=== PATIENT | male | born 1980 | race Caucasian/White ===

== ENCOUNTER 2016-11-18 21:19 | Emergency (ER) | payer SELFPAY ==
[~2016-11-18] VITALS: Ht 175.3 cm; Wt 115.0 kg
[2016-11-18 21:21] VITALS: BP 143/88; PULSE 101; RESP 16; TEMP 98.5; O2SAT 97
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
[2016-11-18] MEDS ORDERED: DICL75TA PO (22:37)
[2016-11-18] MEDS ORDERED: traMADol HCL 50 MG TAB PO ONE (22:45)
== END 2016-11-18 23:08 | disposition home or self-care (01) ==
LOC: NEPB 21:19
DX: S83.91XA Sprain of unspecified site of right knee, initial encounter (principal); Z72.0 Tobacco use; V86.69XA Passenger of other special all-terrain or other off-road motor vehicle injured in nontraffic accident, initial encounter
CPT/HCPCS: 73564; 99283; E0113; L1830

== ENCOUNTER 2018-07-21 20:32 | Observation (INO) ==
[2018-07-21 21:02] VITALS: BP 159/89; PULSE 74; RESP 18; TEMP 98.7; O2SAT 98
[2018-07-21] MEDS ORDERED: Sod Chloride 0.9% Inj 1,000 ML IV.SIG ONE (22:25)
[2018-07-21] MEDS ORDERED: Morphine Inj 4 MG/ML Vial IV.PUSH ONE (22:35)
[2018-07-21 22:40] LABS: Baso # (Auto) 0.1 th/mm3 (0.0-0.2); Baso % (Auto) 0.5 % (0.0-2.0); Eos # (Auto) 0.2 th/mm3 (0.0-0.4); Eos % (Auto) 1.7 % (0.0-4.0); Hematocrit 43.6 % (39.0-51.0); Hemoglobin 15.7 gm/dL (13.0-17.0); Lymph # (Auto) 2.1 th/mm3 (1.0-4.8); Lymph % (Auto) 17.1 % (9.0-44.0); Mean Corpuscular Hemoglobin 31.3 pg (27.0-34.0); Mean Corpuscular Volume 86.9 fL (80.0-100.0); Mean Platelet Volume 8.9 fL (7.0-11.0); Mono # (Auto) 1.2 th/mm3 (0.0-0.9); Mono % (Auto) 10.3 % (0.0-8.0); Neut # (Auto) 8.5 th/mm3 (1.8-7.7); Neut % (Auto) 70.4 % (16.0-70.0); Platelet Count 234 th/mm3 (150-450); Red Blood Count 5.02 mil/mm3 (4.50-5.90); Red Cell Distribution Width 13.8 % (11.6-17.2); White Blood Count 12.1 th/mm3 (4.0-11.0)
[2018-07-21 22:44] LABS: Mean Corpuscular HGB Conc 36.1 % (32.0-36.0)
[2018-07-21 22:57] LABS: Activated Partial Thrombo Time 28.5 sec (23.4-31.7); Prothrombin Time 10.3 sec (9.8-11.6)
[2018-07-21 23:04] LABS: Alkaline Phosphatase 71 U/L (45-117); Total Protein 7.4 g/dL (6.4-8.2)
[2018-07-21 23:05] LABS: Alanine Aminotransferase 42 U/L (12-78); Albumin 3.6 g/dL (3.4-5.0); Anion Gap 6 meq/L (5-15); Aspartate Aminotransferase 33 U/L (15-37); Blood Urea Nitrogen 14 mg/dL (7-18); Calcium 9.1 mg/dL (8.5-10.1); Chloride 107 meq/L (98-107); Glomerular Filtration Rate 77 mL/min (>89); Glucose,Random 87 mg/dL (74-106); Lipase 82 U/L (73-393); Magnesium 2.1 mg/dL (1.5-2.5); Sodium 139 meq/L (136-145)
[2018-07-21 23:09] LABS: Potassium 4.2 meq/L (3.5-5.1)
--- NOTE | 2018-07-21 23:37 | ED ---
HPI General Chief Complaint: Abdominal Pain Stated Complaint: R side abdominal pain Time Seen by Provider: 07/21/18 22:29 Source: patient Mode of arrival: ambulatory Limitations: no limitations History of Present Illness HPI narrative: Patient is a 38-year-old male who presents the emergency room with complaints of abdominal pain. Patient reports that the abdominal pain is located to his right upper abdomen, reports that it has been constant for the past 2-1/2 days. Patient reports associated nausea and vomiting with his symptoms. Patient was told 3 months ago that he may need to have a cholecystectomy as he has multiple stones in his gallbladder, patient reports he has never followed up for this. Denies history of abdominal surgeries. Denies any medical history. He does not take any medications. Patient reports that nothing makes this abdominal pain better or worse, this abdominal pain came out of nowhere a few days ago. Patient denies any fever or chills, reports that he is able to eat but does have a decreased appetite. Patient with no chest pain or shortness of breath, no constipation or diarrhea, no other complaints. MD complaint: Reports abdominal pain Onset (ago): day(s) (2.5 days) Pain Consistency: constant Location: Reports RUQ and RLQ Severity: moderate Severity scale (1-10): 5 Quality: Reports cramping, aching and sharp Radiation: Reports none Migration to: Reports no migration Relieving factors: nothing Exacerbating factors: nothing Associated symptoms: Reports denies other symptoms Related Data Home Medications Medication Instructions Recorded Confirmed No Known Home Medications 07/21/18 07/22/18 Previous Rx's Medication Instructions Recorded hydrocodone-acetaminophen [[place]] 1 tab PO Q4H #25 tab 07/22/18 Allergies Allergy/AdvReac Type Severity Reaction Status Date / Time penicillin G Allergy Unknown Unverified 04/09/17 17:56 Review of Systems ROS: all other systems reviewed are negative [facility] Medical History Medical History Patient denies medical problems (Acute) Surgical History Surgical History No history of previous surgery (Acute) Social History Social History Substance History: Active Abuse Second Hand Smoke Exposure: Yes Smoking Status: Current some day smoker Tobacco Type: Cigarettes How Often Do You Have a Drink Containing Alcohol: Monthly or less Recent Travel in [facility] within the Last 8 Weeks: No Recent Out of Country Travel within the Last 8 Weeks: No Immunization History Tetanus Immunization: Unsure Exam Narrative Exam Narrative: GENERAL: mild distress SKIN: Focused skin assessment warm/dry. HEAD: Atraumatic. Normocephalic. EYES: Pupils equal and round. No scleral icterus. No injection or drainage. ENT: No nasal bleeding or discharge. Mucous membranes pink and moist. NECK: Trachea midline. No JVD. CARDIOVASCULAR: Regular rate and rhythm. No murmur appreciated. RESPIRATORY: No accessory muscle use. Clear to auscultation. Breath sounds equal bilaterally. GASTROINTESTINAL: Abdomen soft, tenderness to right lower to mid abdomen with no rebound or guarding, nondistended. Hepatic and splenic margins not palpable. MUSCULOSKELETAL: No obvious deformities. No clubbing. No cyanosis. No edema. NEUROLOGICAL: Awake and alert. No obvious cranial nerve deficits. Motor grossly within normal limits. Normal speech. PSYCHIATRIC: Appropriate mood and affect; insight and judgment normal. Course Initial Documented Vital Signs Temperature 98.7 F 07/21/18 20:58 Pulse Rate 74 07/21/18 20:58 Respiratory Rate 18 07/21/18 20:58 Blood Pressure 159/89 H 07/21/18 20:58 Pulse Oximetry 98 07/21/18 20:58 Last Documented Vital Signs Temperature 98.7 F 07/21/18 20:58 Pulse Rate 74 07/21/18 20:58 Respiratory Rate 18 07/21/18 20:58 Blood Pressure 159/89 H 07/21/18 20:58 Pulse Oximetry 98 07/21/18 20:58 Medical Decision Making MDM Narrative Medical decision making narrative: During the course of the patients emergency department visit, the patients history, examination, and differential diagnosis were reviewed with the patient. The patient was placed on a surveillance system monitor with oximetry and frequent blood pressure monitoring. The patient had an IV access obtained and blood work sent for analysis. The patient was initially provided IVF, IV zofran and IV morphine for pain relief The patients laboratory studies were reviewed and remarkable for wbc 12.1, hgb 15.7, hct 43.6, platelets 234 sodium 139, potassium 4.2, chloride 107, bun 14, creatine 1.07, glucose 87 lft's: wnl Radiology studies were reviewed and remarkable for: appendix with normal caliber, there is some minimal inflammatory or edemetous changes around the distal appendix - cannot exclude early appendicitis Given his symptoms and rlq to right mid abdominal pain, minimally elevated wbc, plan to obs for serial abdominal evaluations as well as for a general surgery evaluation in the morning. Patient will be kept NPO. will cover with rocephin as well as flagyl Medical Screen Exam Complete: Yes Emergency Medical Condition: Yes Differential Diagnosis Differential Diagnosis: appendicitis, cholecystitis, gastroenteritis, diverticulitis, uti Medical Records Medical records reviewed: Yes I reviewed the patient's medical records. Lab Data Lab results reviewed: Yes I reviewed the patient's lab results. Result diagrams: 07/21/18 22:20 07/21/18 22:20 Lab Results 07/21/18 07/21/18 07/21/18 Range/Units 22:20 22:20 22:20 WBC 12.1 H (4.0-11.0) th/mm3 RBC 5.02 (4.50-5.90) mil/mm3 Hgb 15.7 (13.0-17.0) gm/dL Hct 43.6 (39.0-51.0) % MCV 86.9 (80.0-100.0) fL MCH 31.3 (27.0-34.0) pg MCHC 36.1 H (32.0-36.0) % RDW 13.8 (11.6-17.2) % Plt Count 234 (150-450) th/mm3 MPV 8.9 (7.0-11.0) fL Prelim Diff (Auto) Slide review pending Neut % (Auto) 70.4 H (16.0-70.0) % Lymph % (Auto) 17.1 (9.0-44.0) % [place] % (Auto) 10.3 H (0.0-8.0) % Eos % (Auto) 1.7 (0.0-4.0) % Baso % (Auto) 0.5 (0.0-2.0) % Neut # (Auto) 8.5 H (1.8-7.7) th/mm3 Lymph # (Auto) 2.1 (1.0-4.8) th/mm3 [place] # (Auto) 1.2 H (0.0-0.9) th/mm3 Eos # (Auto) 0.2 (0.0-0.4) th/mm3 Baso # (Auto) 0.1 (0.0-0.2) th/mm3 WBC Differential Manual diff final Seg Neuts % (Manual) 50 (16-70) % Band Neuts % (Manual) 10 H (0-6) % Lymphocytes % (Manual) 25 (9-44) % Monocytes % (Manual) 13 H (0-8) % Eosinophils % (Manual) 1 (0-4) % Metamyelocytes % (Man) 1 (0-1) % Abs Neuts (Manual) 7.4 (1.8-7.7) th/mm3 Differential Comment . Platelet Estimate Normal (Normal) Platelet Morphology Normal (Normal) RBC Morphology Normal (Normal) PT 10.3 (9.8-11.6) sec INR 1.0 Ratio APTT 28.5 (23.4-31.7) sec Sodium 139 (136-145) meq/L Potassium 4.2 (3.5-5.1) meq/L Chloride 107 (98-107) meq/L Carbon Dioxide 26.0 (21.0-32.0) meq/L Anion Gap 6 (5-15) meq/L BUN 14 (7-18) mg/dL Creatinine 1.07 (0.60-1.30) mg/dL Estimated GFR 77 L (>89) mL/min Random Glucose 87 (74-106) mg/dL Calcium 9.1 (8.5-10.1) mg/dL Magnesium 2.1 (1.5-2.5) mg/dL Total Bilirubin 0.3 (0.2-1.0) mg/dL AST 33 (15-37) U/L ALT 42 (12-78) U/L Alkaline Phosphatase 71 (45-117) U/L Total Protein 7.4 (6.4-8.2) g/dL Albumin 3.6 (3.4-5.0) g/dL Lipase 82 (73-393) U/L Imaging Data Radiologist's impression: Abdomen/Pelvis CT 07/22/18 22:35 CONCLUSION: 1. Appendix has normal caliber. There are some very minimal inflammatory or edematous changes around the distal appendix. Cannot exclude an early appendicitis. No appendicolith. No acute findings on remainder of examination. 2. Nonacute findings include small hiatal hernia. Calcified gallstones in gallbladder neck.
[2018-07-22 00:57] LABS: Eosinophils 1 % (0-4); Lymphocytes 25 % (9-44); Metamyelocytes 1 % (0-1); Monocytes 13 % (0-8)
[2018-07-22 00:58] LABS: Platelet Estimate Normal (Normal); Platelet Morphology Normal (Normal)
[2018-07-22 00:59] LABS: RBC Morphology Normal (Normal)
--- NOTE | 2018-07-22 01:08 | CT ---
EXAM DATE: 07/22/2018 12:54 AM EST AGE/SEX: 38 years / Male INDICATIONS: Right lower quadrant pain. CLINICAL DATA: This is the patient's initial encounter. Patient reports that signs and symptoms have been present for 1 day and indicates a pain score of 7/10. MEDICAL/SURGICAL HISTORY: None. None. ORAL CONTRAST: No oral contrast ingested. RADIATION DOSE: 12.22 CTDI (mGy) COMPARISON: No prior exams available for comparison. TECHNIQUE: Multiple contiguous axial images were obtained through the abdomen and pelvis following b olus infusion of 94 ml Omnipaque 350 (iohexol) nonionic water-soluble contrast as a single exam dos e. No oral contrast ingested. Using automated exposure control and adjustment of the mA and/or kV ac cording to patient size, radiation dose was kept as low as reasonably achievable to obtain optimal di agnostic quality images. DICOM format image data is available electronically for review and comparis on. FINDINGS: There is dependent atelectasis at the lung bases. Small hiatal hernia. No acute findings in the liver, spleen, adrenals, kidneys or pancreas. Calcified gallstones in gallbladder neck. No biliary ductal dilatation. The appendix is visualized in the right lower quadrant. It has normal caliber but there are some very minimal inflammatory changes around the distal appendix. Cannot exclude an early appendicitis. There is no free fluid. No bowel obstruction. No adenopathy. CONCLUSION: 1. Appendix has normal caliber. There are some very minimal inflammatory or edematous changes around the distal appendix. Cannot exclude an early appendicitis. No appendicolith. No acute findings on re mainder of examination. 2. Nonacute findings include small hiatal hernia. Calcified gallstones in gallbladder neck. Electronically signed by: Ricky Peterson MD 07/22/2018 1:06 AM EST
== END 2018-07-22 02:35 | disposition left against medical advice (07) ==
LOC: NEPD 20:32 → NEDA 20:32
PROVIDERS: ADMIT Family Medicine; ATTEND Family Medicine

== ENCOUNTER 2018-07-22 02:53 | Inpatient (IN) ==
[2018-07-22] MEDS ORDERED: Morphine Inj 4 MG/ML Vial IV.PUSH ONE (04:02)
[2018-07-22 04:39] LABS: Baso # (Auto) 0.1 th/mm3 (0.0-0.2); Baso % (Auto) 0.6 % (0.0-2.0); Eos # (Auto) 0.3 th/mm3 (0.0-0.4); Hemoglobin 15.2 gm/dL (13.0-17.0); Lymph # (Auto) 2.3 th/mm3 (1.0-4.8); Lymph % (Auto) 25.6 % (9.0-44.0); Mean Corpuscular Hemoglobin 31.7 pg (27.0-34.0); Mean Corpuscular Volume 87.7 fL (80.0-100.0); Mean Platelet Volume 8.8 fL (7.0-11.0); Mono # (Auto) 1.1 th/mm3 (0.0-0.9); Mono % (Auto) 12.5 % (0.0-8.0); Neut # (Auto) 5.3 th/mm3 (1.8-7.7); Neut % (Auto) 58.3 % (16.0-70.0); Platelet Count 219 th/mm3 (150-450); Red Blood Count 4.79 mil/mm3 (4.50-5.90); Red Cell Distribution Width 13.8 % (11.6-17.2); White Blood Count 9.1 th/mm3 (4.0-11.0)
[2018-07-22 04:40] LABS: Mean Corpuscular HGB Conc 36.2 % (32.0-36.0)
--- NOTE | 2018-07-22 04:45 | ED ---
HPI General Chief Complaint: Abdominal Pain Stated Complaint: Med Time Seen by Provider: 07/22/18 03:55 Source: patient Mode of arrival: ambulatory History of Present Illness HPI narrative: The patient is a 38-year-old male that was seen here 10 PM was diagnosed with acute appendicitis and when they were getting ready to start antibiotics and told him that he was going to have to go to surgery he left AMA to go smoke a cigarette he returned an hour later stating that he was stay. Due to the fact that he initially had bandemia and leukocytosis we will repeat the lab work this time. No necessity to repeat CT abdomen and pelvis. Appendix was not perforated but signs were all suggestive of early appendicitis MD complaint: Reports abdominal pain Onset (ago): day(s) (3) Pain Consistency: constant Location: Reports RLQ Severity: similar to previous episodes Severity scale (1-10): 5 Quality: Reports stabbing and sharp Migration to: Reports no migration Relieving factors: nothing Associated symptoms: Reports nausea and other (decreased appetite) Related Data Home Medications Medication Instructions Recorded Confirmed No Known Home Medications 07/21/18 07/22/18 Allergies Allergy/AdvReac Type Severity Reaction Status Date / Time penicillin G Allergy Unknown Unverified 04/09/17 17:56 Review of Systems ROS: all other systems reviewed are negative [facility] Medical History Medical History Anxiety (Acute) PTSD (post-traumatic stress disorder) (Acute) Surgical History Surgical History No history of previous surgery (Acute) Social History Social History Substance History: Active Abuse Second Hand Smoke Exposure: Yes Smoking Status: Current some day smoker Tobacco Type: Cigarettes How Often Do You Have a Drink Containing Alcohol: Monthly or less Recent Travel in [facility] within the Last 8 Weeks: No Recent Out of Country Travel within the Last 8 Weeks: No Substance Abuse Detail Marijuana: Substance Use Status: Active Route Used Substance Abuse: Inhalation Reason for Use: Calm Down Immunization History Tetanus Immunization: <5 Years Exam Narrative Exam Narrative: GENERAL: Alert and oriented in no distress well-nourished well- developed SKIN: Focused skin assessment warm/dry. HEAD: Atraumatic. Normocephalic. EYES: Pupils equal and round. No scleral icterus. No injection or drainage. ENT: No nasal bleeding or discharge. Mucous membranes pink and moist. NECK: Trachea midline. No JVD. CARDIOVASCULAR: Regular rate and rhythm. No murmur appreciated. RESPIRATORY: No accessory muscle use. Clear to auscultation. Breath sounds equal bilaterally. GASTROINTESTINAL: Abdomen soft, right lower quadrant tenderness. Voluntary guarding. Rebound tenderness present., nondistended. Hepatic and splenic margins not palpable. MUSCULOSKELETAL: No obvious deformities. No clubbing. No cyanosis. No edema. NEUROLOGICAL: Awake and alert. No obvious cranial nerve deficits. Motor grossly within normal limits. Normal speech. PSYCHIATRIC: Appropriate mood and affect; insight and judgment normal. Course Hospital Course: Patient appears that he had received antibiotics previously however they were never started because he left AMA. Due to penicillin allergy will start on Flagyl and Levaquin IV. We will also obtain repeat labs to the fact that he had labs about 6 hours ago and he had bandemia at that time. We will can add lactic acid as well as blood cultures. Reevaluation(s) Reevaluation #1: resting comfortablyi no distress Time: 04:45 Initial Documented Vital Signs Temperature 98.1 F 07/22/18 03:00 Pulse Rate 71 07/22/18 03:00 Respiratory Rate 21 07/22/18 03:00 Blood Pressure 195/101 H 07/22/18 03:00 Pulse Oximetry 98 07/22/18 03:00 Last Documented Vital Signs Temperature 98.1 F 07/22/18 03:00 Pulse Rate 51 L 07/22/18 04:44 Respiratory Rate 18 07/22/18 04:44 Blood Pressure 138/90 07/22/18 04:44 Pulse Oximetry 97 07/22/18 04:44 Medical Decision Making [facility] Narrative Medical decision making narrative: She was improving leukocytosis from a few hours ago. No lactic acidosis. Anemia improved from 10-9. He has a CT scan that day suggestive of possible early acute appendicitis for which he was started on Flagyl and Levaquin due to penicillin allergy. Patient tolerated antibiotics well. He had left initially AMA to go outside and have a cigarette and then return 30 minutes later. Medical Screen Exam Complete: Yes Emergency Medical Condition: Yes Medical Records Medical records reviewed: Yes I reviewed the patient's medical records. Lab Data Lab results reviewed: Yes I reviewed the patient's lab results. Result diagrams: 07/22/18 04:22 07/22/18 04:22 Lab Results 07/22/18 07/22/18 07/22/18 Range/Units 04:22 04:22 04:24 WBC 9.1 (4.0-11.0) th/mm3 RBC 4.79 (4.50-5.90) mil/mm3 Hgb 15.2 (13.0-17.0) gm/dL Hct 42.0 (39.0-51.0) % MCV 87.7 (80.0-100.0) fL MCH 31.7 (27.0-34.0) pg MCHC 36.2 H (32.0-36.0) % RDW 13.8 (11.6-17.2) % Plt Count 219 (150-450) th/mm3 MPV 8.8 (7.0-11.0) fL Prelim Diff (Auto) Slide review pending Neut % (Auto) 58.3 (16.0-70.0) % Lymph % (Auto) 25.6 (9.0-44.0) % [place] % (Auto) 12.5 H (0.0-8.0) % Eos % (Auto) 3.0 (0.0-4.0) % Baso % (Auto) 0.6 (0.0-2.0) % Neut # (Auto) 5.3 (1.8-7.7) th/mm3 Lymph # (Auto) 2.3 (1.0-4.8) th/mm3 [place] # (Auto) 1.1 H (0.0-0.9) th/mm3 Eos # (Auto) 0.3 (0.0-0.4) th/mm3 Baso # (Auto) 0.1 (0.0-0.2) th/mm3 WBC Differential Manual diff final Seg Neuts % (Manual) 57 (16-70) % Band Neuts % (Manual) 9 H (0-6) % Lymphocytes % (Manual) 20 (9-44) % Monocytes % (Manual) 6 (0-8) % Eosinophils % (Manual) 5 H (0-4) % Basophils % (Manual) 1 (0-2) % Metamyelocytes % (Man) 1 (0-1) % Myelocytes % (Man) 1 H (0-0) % Abs Neuts (Manual) 6.2 (1.8-7.7) th/mm3 Differential Comment . Platelet Estimate Normal (Normal) Platelet Morphology Normal (Normal) Sodium 140 (136-145) meq/L Potassium 4.0 (3.5-5.1) meq/L Chloride 109 H (98-107) meq/L Carbon Dioxide 27.0 (21.0-32.0) meq/L Anion Gap 4 L (5-15) meq/L BUN 13 (7-18) mg/dL Creatinine 0.91 (0.60-1.30) mg/dL Estimated GFR Greater than 89 (>89) mL/min Random Glucose 95 (74-106) mg/dL Lactic Acid 0.5 (0.4-2.0) mmol/L Calcium 8.4 L (8.5-10.1) mg/dL Total Bilirubin 0.2 (0.2-1.0) mg/dL AST 16 (15-37) U/L ALT 40 (12-78) U/L Alkaline Phosphatase 75 (45-117) U/L Total Protein 6.7 D (6.4-8.2) g/dL Albumin 3.4 (3.4-5.0) g/dL Discharge Plan Discharge Disposition Patient Disposition: 30 Still Patient Discharge Condition Condition: Good Discharge Details Diagnosis: Abdominal pain, Acute appendicitis Physicians Team ED Provider: Andrea Ackerman Primary Care Provider: Primary Care Physici,Shruthi Rxs /Orders / Referrals /Forms Prescriptions: No Action No Known Home Medications RF: 0 Discharge Interventions Interventions: Vital Signs Last Done: 07/22/18 04:44 Status ED Status: With Doctor
[2018-07-22 04:52] LABS: Alanine Aminotransferase 40 U/L (12-78); Albumin 3.4 g/dL (3.4-5.0); Anion Gap 4 meq/L (5-15); Aspartate Aminotransferase 16 U/L (15-37); Blood Urea Nitrogen 13 mg/dL (7-18); Calcium 8.4 mg/dL (8.5-10.1); Chloride 109 meq/L (98-107); Glomerular Filtration Rate Greater Than 89 mL/min (>89); Glucose,Random 95 mg/dL (74-106); Sodium 140 meq/L (136-145)
[2018-07-22 04:55] LABS: Alkaline Phosphatase 75 U/L (45-117); Total Protein 6.7 g/dL (6.4-8.2)
[2018-07-22 06:08] LABS: Eosinophils 5 % (0-4); Lymphocytes 20 % (9-44); Metamyelocytes 1 % (0-1); Monocytes 6 % (0-8); Myelocytes 1 % (0-0)
[2018-07-22 06:09] LABS: Platelet Estimate Normal (Normal); Platelet Morphology Normal (Normal)
[2018-07-22] MEDS ORDERED: Bisacodyl 10 MG Supp RECTAL PRN (06:15)
[2018-07-22] MEDS ORDERED: Acetaminophen 325 MG Tablet PO PRN (06:15)
[2018-07-22] MEDS: Sod Chloride 0.9% Inj 1,000 ML IV.CONT SCH ×2 (07:03→22:44)
[2018-07-22] MEDS: Morphine Sulfate Inj 2 MG/ML Vial IV.PUSH PRN ×3 (10:00→18:10)
[2018-07-22] MEDS ORDERED: Chlorhexidine Gluconate 2% 1 Pack (2 Cloths) TOPICAL ONE (12:45)
[2018-07-22] MEDS ORDERED: Metoprolol Tartrate 25 MG Tablet PO ONE (12:45)
[2018-07-22] MEDS ORDERED: Sodium Chlor 0.9% Inj 500 ML IV.CONT ONE (12:45)
--- NOTE | 2018-07-22 12:55 | P.HP ---
History of Present Illness Primary Care Physician: No Primary Care Physician Chief Complaint: Abdominal pain History of Present Illness: This is a 38-year-old male with a history of anxiety and PTSD. He presents to the emergency department because of constant moderate stabbing/sharp right lower quadrant pain for the past 3 days associated with nausea and anorexia. Denies fever, chills, constipation, diarrhea and UTI symptoms. Abdominal CT showed signs of early appendicitis. When he was advised of the results and plan of, he felt overwhelmed and left AGAINST MEDICAL ADVICE. An hour later he returned and agrees to proceed with surgical intervention. Patient also reports history of gallstone and hernia. All other systems reviewed negative Inpatient Certification: I certify that the inpatient services were ordered in accordance with Medicare regulations governing the order. This includes certification that hospital inpatient services are reasonable and necessary and in the case of services not specified as inpatient-only under 42 CFR 419.22(n), that they are appropriately provided as inpatient services in accordance to with the 2-midnight benchmark under 43 CFR 412.3(e) Review of Systems All other systems reviewed negative except as stated in HPI PMFSH - History History Provided By: Patient - Medical History Medical History: Medical History (Last Reviewed 07/22/18 @ 15:28 by Gagan Hunter MD) Anxiety PTSD (post-traumatic stress disorder) - Surgical History Surgical History: Surgical History (Last Reviewed 07/22/18 @ 15:28 by Gagan Hunter MD) No history of previous surgery - Family History Family History: Family History (Last Updated 07/22/18 @ 15:28 by Gagan Hunter MD) Other Family history non-contributory - Social History I have reviewed the patient's Social History: Yes - Tobacco History Second Hand Smoke Exposure: Yes Tobacco Use In Past 30 Days: Yes Smoking Status: Current some day smoker Tobacco Type: Cigarettes - Alcohol History How Often Do You Have a Drink Containing Alcohol: Monthly or less - Substance Use History Substance History: Active Abuse - Substance Use Type Marijuana Status: Active Route Used: Inhalation Reason for Use: Calm Down - Travel History Recent Travel in the [place] Within the Last 8 Weeks: No Recent Travel Out of the Country Within the Last 8 Weeks: No - Immunization History Tetanus Immunization: <5 Years Medications and Allergies Active Medications: Active Medications Acetaminophen (Tylenol) 650 mg PO Q4H PRN PRN Reason: Temp > 100.4 Bisacodyl (Dulcolax Supp) 10 mg RECTAL DAILY PRN PRN Reason: SEVERE CONSITIPATION Sodium Chloride (Ns Inj) 1,000 mls @ 100 mls/hr IV.CONT .Q10H [facility] Last Admin: 07/22/18 07:03 Dose: 100 mls/hr Ciprofloxacin/Dextrose (Cipro 400 Mg/200 Ml Inj) 400 mg in 200 mls @ 200 mls/ hr IV.SIG Q12H [facility] Metronidazole/Sodium Chloride (Flagyl 500 Mg Inj) 100 mls @ 100 mls/hr IV.SIG Q8H [facility] Last Admin: 07/22/18 11:20 Dose: 100 mls/hr Lactated Ringer's (Lr 1000 Ml Inj) 1,000 mls @ 30 mls/hr IV.CONT .Q24H ONE Stop: 07/23/18 12:44 Sodium Chloride (Ns Inj) 500 mls @ 30 mls/hr IV.CONT .[id number] ONE Stop: 07/23/18 05:24 Morphine Sulfate (Morphine Inj) 2 mg IV.PUSH Q4H PRN PRN Reason: pain 3-10 Last Admin: 07/22/18 10:00 Dose: 2 mg Prochlorperazine Edisylate (Compazine Inj) 5 mg IV.PUSH Q4H PRN PRN Reason: NAUSEA OR VOMITING Sennosides (Senokot) 17.2 mg PO Q12H PRN PRN Reason: Moderate Constipation Allergies Allergy/AdvReac Type Severity Reaction Status Date / Time penicillin G Allergy Unknown Unverified 04/09/17 17:56 Home Medications Medication Instructions Recorded Confirmed Type No Known Home Medications 07/21/18 07/22/18 History Exam Vital signs: Vital Signs 07/22/18 03:00 07/22/18 04:44 07/22/18 11:42 Temperature 98.1 F 97.8 F Pulse Rate 71 51 L 62 Respiratory Rate 21 18 17 Blood Pressure 195/101 H 138/90 134/75 Pulse Oximetry 98 97 97 Intake & Output 07/21/18 07/22/18 07/22/18 18:59 06:59 18:59 Intake Total 100 / 100 150 / 150 Balance 100 / 100 150 / 150 Weight 111.13 kg Intake: IV 100 / 100 150 / 150 Levaquin 750 mg Premix Inj 150 150 / 150 ML @ 100 mls/hr IV.SIG ONCE ONE Rx#:[id number] Flagyl 500 MG Inj 100 ML @ 100 100 / 100 mls/hr IV.SIG ONCE ONE Rx#: [id number] Narrative: GENERAL: Well-developed and well-nourished in no distress SKIN: Warm and dry. HEAD: Atraumatic. Normocephalic. EYES: Pupils equal and round. No scleral icterus. No injection or drainage. ENT: No nasal bleeding or discharge. Mucous membranes pink and moist. NECK: Trachea midline. No JVD. CARDIOVASCULAR: Regular rate and rhythm. RESPIRATORY: No accessory muscle use. Clear to auscultation. Breath sounds equal bilaterally. GASTROINTESTINAL: Abdomen soft, tender right lower quadrant, nondistended. MUSCULOSKELETAL: Extremities without clubbing, cyanosis, or edema. No obvious deformities. NEUROLOGICAL: Awake and alert. No obvious cranial nerve deficits. Motor grossly within normal limits. Five out of 5 muscle strength in the arms and legs. Normal speech. PSYCHIATRIC: Appropriate mood and affect; insight and judgment normal. Results - Labs CBC & Chem 7: 07/22/18 04:22 07/22/18 04:22 Labs: Laboratory Results - last 24 hr 07/22/18 07/22/18 07/22/18 04:22 04:22 04:24 WBC 9.1 RBC 4.79 Hgb 15.2 Hct 42.0 MCV 87.7 MCH 31.7 MCHC 36.2 H RDW 13.8 Plt Count 219 MPV 8.8 Prelim Diff (Auto) Slide review pending Neut % (Auto) 58.3 Lymph % (Auto) 25.6 [place] % (Auto) 12.5 H Eos % (Auto) 3.0 Baso % (Auto) 0.6 Neut # (Auto) 5.3 Lymph # (Auto) 2.3 [place] # (Auto) 1.1 H Eos # (Auto) 0.3 Baso # (Auto) 0.1 WBC Differential Manual diff final Seg Neuts % (Manual) 57 Band Neuts % (Manual) 9 H Lymphocytes % (Manual) 20 Monocytes % (Manual) 6 Eosinophils % (Manual) 5 H Basophils % (Manual) 1 Metamyelocytes % (Man) 1 Myelocytes % (Man) 1 H Abs Neuts (Manual) 6.2 Differential Comment . Platelet Estimate Normal Platelet Morphology Normal Sodium 140 Potassium 4.0 Chloride 109 H Carbon Dioxide 27.0 Anion Gap 4 L BUN 13 Creatinine 0.91 Estimated GFR Greater than 89 Random Glucose 95 Lactic Acid 0.5 Calcium 8.4 L Total Bilirubin 0.2 AST 16 ALT 40 Alkaline Phosphatase 75 Total Protein 6.7 D Albumin 3.4 Caprini VTE Risk Assessment Caprini VTE Risk Assessment: No/Low Risk (score <= 1) Caprini Risk Assessment Model: Point Value = 1 Point Value = 2 Point Value = 3 Point Value = 5 Age 41-60 Minor surgery BMI > 25 kg/m2 Swollen legs Varicose veins or History of unexplained or recurrent spontaneous Oral contraceptives or hormone replacement Sepsis (< 1 month) Serious lung disease, including pneumonia (< 1 month) Abnormal pulmonary function Acute myocardial infarction Congestive heart failure (< 1 month) History of inflammatory bowel disease Medical patient at bed rest Age 61-74 Arthroscopic surgery Major open surgery (> 45 min) Laparoscopic surgery (> 45 min) Malignancy Confined to bed (> 72 hours) Immobilizing plaster cast Central venous access Age >= 75 History of VTE Family history of VTE Factor V Leiden Prothrombin [id number] Lupus anticoagulant Anticardiolipin antibodies Elevated serum homocysteine Heparin-induced thrombocytopenia Other congenital or acquired thrombophilia Stroke (< 1 month) Elective arthroplasty Hip, pelvis, or leg fracture Acute spinal cord injury (< 1 month) Prophylaxis Regimen: Total Risk Factor Score Risk Level Prophylaxis Regimen 0-1 Low Early ambulation 2 Moderate Order ONE of the following: *Sequential Compression Device (SCD) *Heparin 5000 units SQ BID 3-4 Higher Order ONE of the following medications: *Heparin 5000 units SQ TID *Enoxaparin/Lovenox 40 mg SQ daily (WT < 150 kg, CrCl > 30 mL/min) *Enoxaparin/Lovenox 30 mg SQ daily (WT < 150 kg, CrCl > 10-29 mL/min) *Enoxaparin/Lovenox 30 mg SQ BID (WT < 150 kg, CrCl > 30 mL/min) AND/OR *Sequential Compression Device (SCD) 5 or more Highest Order ONE of the following medications: *Heparin 5000 units SQ TID (Preferred with Epidurals) *Enoxaparin/Lovenox 40 mg SQ daily (WT < 150 kg, CrCl > 30 mL/min) *Enoxaparin/Lovenox 30 mg SQ daily (WT < 150 kg, CrCl > 10-29 mL/min) *Enoxaparin/Lovenox 30 mg SQ BID (WT < 150 kg, CrCl > 30 mL/min) AND *Sequential Compression Device (SCD) Assessment and Plan - Plan This is a 38-year-old male with a history of anxiety and PTSD. He presents to the emergency department because of constant moderate stabbing/sharp right lower quadrant pain for the past 3 days associated with nausea and anorexia. Abdominal CT showed signs of early appendicitis. Early appendicitis. Keep patient n.p.o., continue IV hydration and pain medicine. We have oxygen. General surgery for laparoscopic appendectomy. Continue IV Flagyl and Cipro Tobacco abuse. Counselled Low risk for DVT Discharge Planning: Per general surgery
[2018-07-22] MEDS ORDERED: Bupivacaine/Epinephrine Inj 0.25% 50 ML Vial ONE (20:18)
[2018-07-22] MEDS ORDERED: Sugammadex Inj 200 MG/2 ML Vial IV.PUSH ONE (20:44)
[2018-07-22] MEDS: Ciprofloxacin 400 MG/200 ML 400 MG/200 ML PIGGYBACK IV.SIG SCH (21:10)
--- NOTE | 2018-07-22 22:09 | P.CON ---
History of Present Illness Consult date: 07/22/18 Reason for Consult: Acute appendicitis Primary Care Provider: No Primary Care Physician Chief Complaint: Abdominal pain History of Present Illness: Patient is a 38-year-old male who presents with an approximately 1-2-day history of lower abdominal pain. Patient underwent workup and was found to have question of acute early appendicitis. He presents at this time for further management. He denies previous history of symptoms like this. He denies any previous surgical history. [facility] - History History Provided By: Patient - Medical History Medical History: Medical History (Last Reviewed 07/22/18 @ 15:28 by Gagan Hunter MD) Anxiety PTSD (post-traumatic stress disorder) - Surgical History Surgical History: Surgical History (Last Reviewed 07/22/18 @ 15:28 by Gagan Hunter MD) No history of previous surgery - Family History Family History: Family History (Last Updated 07/22/18 @ 15:28 by Gagan Hunter MD) Other Family history non-contributory - Tobacco History Second Hand Smoke Exposure: Yes Tobacco Use In Past 30 Days: Yes Smoking Status: Current some day smoker Tobacco Type: Cigarettes - Alcohol History How Often Do You Have a Drink Containing Alcohol: Monthly or less - Substance Use History Substance History: Active Abuse - Substance Use Type Marijuana Status: Active Route Used: Inhalation Reason for Use: Calm Down - Travel History Recent Travel in the [place] Within the Last 8 Weeks: No Recent Travel Out of the Country Within the Last 8 Weeks: No - Immunization History Tetanus Immunization: <5 Years Medications and Allergies Active Medications: Active Medications Acetaminophen (Tylenol) 650 mg PO Q4H PRN PRN Reason: Temp > 100.4 Hydrocodone Bitart/Acetaminophen ([place] 7.5/325) 1 tab PO Q4H PRN PRN Reason: Acute Pain Bisacodyl (Dulcolax Supp) 10 mg RECTAL DAILY PRN PRN Reason: SEVERE CONSITIPATION Sodium Chloride (Ns Inj) 1,000 mls @ 100 mls/hr IV.CONT .Q10H [facility] Last Admin: 07/22/18 07:03 Dose: 100 mls/hr Ciprofloxacin/Dextrose (Cipro 400 Mg/200 Ml Inj) 400 mg in 200 mls @ 200 mls/ hr IV.SIG Q12H RAFAL Last Admin: 07/22/18 21:10 Dose: 200 mls/hr Metronidazole/Sodium Chloride (Flagyl 500 Mg Inj) 100 mls @ 100 mls/hr IV.SIG Q8H RAFAL Last Admin: 07/22/18 21:33 Dose: 100 mls/hr Lactated Ringer's (Lr 1000 Ml Inj) 1,000 mls @ 30 mls/hr IV.CONT .Q24H ONE Stop: 07/23/18 12:44 Last Admin: 07/22/18 13:55 Dose: 30 mls/hr Sodium Chloride (Ns Inj) 500 mls @ 30 mls/hr IV.CONT .[id number] ONE Stop: 07/23/18 05:24 Morphine Sulfate (Morphine Inj) 2 mg IV.PUSH Q4H PRN PRN Reason: pain 3-10 Last Admin: 07/22/18 18:10 Dose: 2 mg Prochlorperazine Edisylate (Compazine Inj) 5 mg IV.PUSH Q4H PRN PRN Reason: NAUSEA OR VOMITING Sennosides (Senokot) 17.2 mg PO Q12H PRN PRN Reason: Moderate Constipation Allergies Allergy/AdvReac Type Severity Reaction Status Date / Time penicillin G Allergy Unknown Unverified 04/09/17 17:56 Home Medications Medication Instructions Recorded Confirmed Type No Known Home Medications 07/21/18 07/22/18 History Physical Exam Vital signs: Vital Signs 07/22/18 03:00 07/22/18 04:44 07/22/18 11:42 Temperature 98.1 F 97.8 F Pulse Rate 71 51 L 62 Respiratory Rate 21 18 17 Blood Pressure 195/101 H 138/90 134/75 Pulse Oximetry 98 97 97 07/22/18 18:30 07/22/18 19:00 Temperature 97.7 F Pulse Rate 55 L Respiratory Rate 18 Blood Pressure 133/81 131/80 Pulse Oximetry 98 Intake & Output 07/22/18 07/22/18 07/23/18 06:59 18:59 06:59 Intake Total 100 / 100 150 / 150 1100 / 1100 Output Total 10 / 10 Balance 100 / 100 150 / 150 1090 / 1090 Weight 111.13 kg Intake: IV 100 / 100 150 / 150 100 / 100 Levaquin 750 mg Premix Inj 150 150 / 150 ML @ 100 mls/hr IV.SIG ONCE ONE Rx#:[id number] Flagyl 500 MG Inj 100 ML @ 100 100 / 100 100 / 100 mls/hr IV.SIG Q8H [facility] Rx#: [id number] Anesthesia Amount 1000 / 1000 Output: Estimated Blood Loss - Constitutional mild distress - Routine HEENT Exam Head: Present: normocephalic, atraumatic - Routine Respiratory Exam Present: CTA bilaterally - Routine Cardiovascular Exam Present: RRR - Routine Abdominal Exam Present: soft, tenderness (Right lower quadrant), guarding Results - Labs CBC & Chem 7: 07/22/18 04:22 07/22/18 04:22 Labs: Laboratory Results - last 24 hr 07/22/18 07/22/18 07/22/18 04:22 04:22 04:24 WBC 9.1 RBC 4.79 Hgb 15.2 Hct 42.0 MCV 87.7 MCH 31.7 MCHC 36.2 H RDW 13.8 Plt Count 219 MPV 8.8 Prelim Diff (Auto) Slide review pending Neut % (Auto) 58.3 Lymph % (Auto) 25.6 [place] % (Auto) 12.5 H Eos % (Auto) 3.0 Baso % (Auto) 0.6 Neut # (Auto) 5.3 Lymph # (Auto) 2.3 [place] # (Auto) 1.1 H Eos # (Auto) 0.3 Baso # (Auto) 0.1 WBC Differential Manual diff final Seg Neuts % (Manual) 57 Band Neuts % (Manual) 9 H Lymphocytes % (Manual) 20 Monocytes % (Manual) 6 Eosinophils % (Manual) 5 H Basophils % (Manual) 1 Metamyelocytes % (Man) 1 Myelocytes % (Man) 1 H Abs Neuts (Manual) 6.2 Differential Comment . Platelet Estimate Normal Platelet Morphology Normal Sodium 140 Potassium 4.0 Chloride 109 H Carbon Dioxide 27.0 Anion Gap 4 L BUN 13 Creatinine 0.91 Estimated GFR Greater than 89 Random Glucose 95 Lactic Acid 0.5 Calcium 8.4 L Total Bilirubin 0.2 AST 16 ALT 40 Alkaline Phosphatase 75 Total Protein 6.7 D Albumin 3.4 Assessment and Plan - Assessment (1) Acute appendicitis Code(s): K35.80 - Unspecified acute appendicitis Status: Acute Plan: To the OR for laparoscopic appendectomy. I discussed risks of the procedure with the patient including but not limited to: Bleeding, infection, leakage, need for drainage, adhesion formation. I discussed remedies, consequences, alternatives, and convalescence; he vocalizes understanding and agrees to proceed. - Plan Discussed Condition With: Patient ER physician - Attending Attestation I attest that I had a [id number] encounter with the patient on the same day, and personally performed and documented my assessment and findings in the medical record. The following services were provided during this hospital visit: Chart data review, vital sign assessments/reviewing monitor data Review of consultation notes if present Medication orders/review and/or management Ordering and/or reviewing lab tests Ordering and/or interpreting/reviewing x-rays and/or diagnostic studies Care of the patient and discussion of the patient with the care team Documentation time To help prompt me to consider important information that might be impacting today's encounter and assessment, Information from prior notes written by myself or my colleagues may have been "brought forward/copy and pasted" into today's note. (1) Acute appendicitis Qualifiers: Acute appendicitis type: other Qualified Code(s): K35.890 - Other acute appendicitis without perforation or gangrene; K35.89 - Other acute appendicitis
--- NOTE | 2018-07-22 22:14 | P.OP ---
- Preoperative Diagnosis (1) Acute appendicitis - Postoperative Diagnosis (1) Acute appendicitis with localized peritonitis without abscess Date of procedure: 07/22/18 Procedure: Laparoscopic appendectomy Anesthesia: CALI Surgeon: Lennox Combs MD Chief Building Inspector: Erika Keith CFA Estimated blood loss (mL): 10 IV fluids (mL): 1,000 Pathology: other (Appendix to pathology) Operation and Findings: Patient was taken to the operating room and placed on the operating table in the supine position. After an adequate level of general endotracheal anesthesia was achieved, the abdomen was shaved prepped and draped. Time-out was taken, confirming the correct patient, site, and procedure to be performed. Skin and subcutaneous tissue was infiltrated with local anesthetic and an incision made in the umbilicus and carried through the fascia sharply. The peritoneal cavity was directly visualized. A 12 mm balloon trocar was inserted and the balloon inflated. The abdomen was insufflated. The patient was placed in Trendelenburg position. Two 5 mm trocars were then placed, with the first in the right lower quadrant and the second in the suprapubic region. Both entered the abdominal cavity under direct vision uneventfully. The cecum was rotated medially and a long thin inflamed appendix was noted. The mesoappendix was divided from the appendix utilizing the harmonic scalpel. The dissection was carried back to the base of the appendix. A 0 PDS Endoloop was slipped over the appendix and cinched down at the base. The appendix was divided 1 cm distal to this. The appendix was placed into an Endo Catch device and removed via the umbilical port while observing via the right lower quadrant 5 mm trocar site. The specimen was passed off the table. Attention was turned to the appendiceal stump and mesoappendix. This was irrigated and aspirated. Complete hemostasis was achieved. The remainder of the abdominal cavity was examined and visualized. The patient was noted to have fatty liver changes. Other than this , there did not appear to be any other gross pathology. At this point, insufflation was discontinued. The 5 mm trochars were removed under direct vision. No bleeding was noted from the trocar sites. The laparoscope and umbilical port were removed. The fascia was closed in the umbilicus with 0 Vicryl suture in a simple interrupted fashion. The skin was closed at all 3 sites with 4-0 Vicryl in an interrupted buried fashion. All sites were dressed with Steri-Strips. Sponge and needle counts were reported to be correct. The patient was extubated and taken back to the recovery room in stable condition. He tolerated the procedure well.
[2018-07-22] MEDS ORDERED: fentaNYL Citrate Inj 100 MCG/2 ML Ampul ONE (22:26)
[2018-07-22] MEDS ORDERED: *morphine SULFATE 4 MG/ML PERIprocedure ONLY ONE (22:27)
[2018-07-23] MEDS: Sod Chloride 0.9% Inj 1,000 ML IV.CONT SCH (06:17)
[2018-07-23] MEDS: Ciprofloxacin 400 MG/200 ML 400 MG/200 ML PIGGYBACK IV.SIG SCH (06:20)
[2018-07-23 06:58] LABS: Baso % (Auto) 0.1 % (0.0-2.0); Eos % (Auto) 0.1 % (0.0-4.0); Hematocrit 44.2 % (39.0-51.0); Hemoglobin 15.6 gm/dL (13.0-17.0); Lymph # (Auto) 0.7 th/mm3 (1.0-4.8); Lymph % (Auto) 8.7 % (9.0-44.0); Mean Corpuscular HGB Conc 35.3 % (32.0-36.0); Mean Corpuscular Volume 87.9 fL (80.0-100.0); Mean Platelet Volume 9.1 fL (7.0-11.0); Mono # (Auto) 0.2 th/mm3 (0.0-0.9); Mono % (Auto) 2.6 % (0.0-8.0); Neut # (Auto) 7.1 th/mm3 (1.8-7.7); Neut % (Auto) 88.5 % (16.0-70.0); Platelet Count 225 th/mm3 (150-450); Red Blood Count 5.03 mil/mm3 (4.50-5.90); Red Cell Distribution Width 13.6 % (11.6-17.2); White Blood Count 8.1 th/mm3 (4.0-11.0)
[2018-07-23 07:23] LABS: Calcium 9.2 mg/dL (8.5-10.1); Carbon Dioxide 24.2 meq/L (21.0-32.0); Potassium 4.3 meq/L (3.5-5.1)
--- NOTE | 2018-07-23 08:25 | P.PNGS ---
Subjective Interval history: Resting in bed Hungry Physical Exam Vital signs: Vital Signs 07/22/18 11:42 07/22/18 18:30 07/22/18 19:00 Temperature 97.8 F 97.7 F Pulse Rate 62 55 L Respiratory Rate 17 18 Blood Pressure 134/75 133/81 131/80 Pulse Oximetry 97 98 07/22/18 22:15 07/22/18 22:30 07/22/18 22:45 Temperature 96.6 F L Pulse Rate 97 H 86 76 Respiratory Rate 16 18 22 Blood Pressure 141/90 H 160/80 H 139/84 Pulse Oximetry 97 95 93 L 07/22/18 22:55 07/22/18 23:00 07/22/18 23:15 Temperature 97.4 F L 98 F Pulse Rate 98 H 69 Respiratory Rate 20 20 18 Blood Pressure 131/76 Pulse Oximetry 97 92 L 07/23/18 02:00 07/23/18 03:25 Temperature 97.6 F Pulse Rate 52 L Respiratory Rate 20 18 Blood Pressure 116/68 Pulse Oximetry 94 L Intake & Output 07/22/18 07/23/18 07/23/18 18:59 06:59 18:59 Intake Total 1150 / 1150 2220 / 2220 Output Total Balance 1150 / 1150 2210 / 2210 Weight 110.6 kg Intake: IV 1150 / 1150 500 / 500 NS Inj 1,000 ML @ 100 mls/hr IV 1000 / 1000 .CONT .Q10H [facility] Rx#:[id number] Cipro 400 MG/200 ML Inj 400 mg 200 / 200 In 200 ml @ 200 mls/hr IV.SIG Q12H [facility] Rx#:[id number] Levaquin 750 mg Premix Inj 150 150 / 150 ML @ 100 mls/hr IV.SIG ONCE ONE Rx#:[id number] Flagyl 500 MG Inj 100 ML @ 100 300 / 300 mls/hr IV.SIG Q8H [facility] Rx#: [id number] Oral 720 / 720 Anesthesia Amount 1000 / 1000 Output: Estimated Blood Loss Other: # Voids 3 Date of Last Bowel Movement 07/21/18 # Bowel Movements 0 Weight On Admission 110.677 kg Narrative: Alert and awake Abd: soft; tender in RLQ; lap sites c/d/i Results - Labs 07/23/18 05:49 07/23/18 05:49 Laboratory Results - last 24 hr 07/23/18 07/23/18 05:49 05:49 WBC 8.1 RBC 5.03 Hgb 15.6 Hct 44.2 MCV 87.9 MCH 31.0 MCHC 35.3 RDW 13.6 Plt Count 225 MPV 9.1 Neut % (Auto) 88.5 H Lymph % (Auto) 8.7 L Real % (Auto) 2.6 Eos % (Auto) 0.1 Baso % (Auto) 0.1 Neut # (Auto) 7.1 Lymph # (Auto) 0.7 L Real # (Auto) 0.2 Eos # (Auto) 0.0 Baso # (Auto) 0.0 WBC Differential . Differential Comment Auto diff final Sodium 139 Potassium 4.3 Chloride 108 H Carbon Dioxide 24.2 Anion Gap 7 BUN 11 Creatinine 1.09 Estimated GFR 76 L Random Glucose 131 H Calcium 9.2 D Assessment and Plan - Assessment (1) Acute appendicitis Code(s): K35.80 - Unspecified acute appendicitis Status: Acute Plan: 38 year old male POD1 lap appy -DC IVF -DC antibiotics -Advance to regular diet -Pain control -DC after breakfast -RX for [place] on chart -Follow up with Dr. Garret George Jul 31 at 9:20AM (1) Acute appendicitis Qualifiers: Acute appendicitis type: other Qualified Code(s): K35.890 - Other acute appendicitis without perforation or gangrene; K35.89 - Other acute appendicitis
--- NOTE | 2018-07-23 09:58 | P.DS ---
Date of admission: 07/22/18 07:26 Primary care physician: Shruthi Primary Care Physician Attending physician on discharge: David Joyce Anticipated date of discharge: 07/23/18 Brief History from admission: This is a 38-year-old male with a history of anxiety and PTSD. He presents to the emergency department because of constant moderate stabbing/sharp right lower quadrant pain for the past 3 days associated with nausea and anorexia. Denies fever, chills, constipation, diarrhea and UTI symptoms. Abdominal CT showed signs of early appendicitis. When he was advised of the results and plan of, he felt overwhelmed and left AGAINST MEDICAL ADVICE. An hour later he returned and agrees to proceed with surgical intervention. Patient also reports history of gallstone and hernia. All other systems reviewed negative DS: Medications - Discharge Medications Prescriptions: hydrocodone-acetaminophen 1 tab PO Q4H PRN #18 tab PRN Reason: Acute Pain post op pain except DS: Summary Hospital Course: 38-year-old male with past medical history significant for anxiety and PTSD who presented to the emergency department with complaints of right lower abdominal pain along with nausea and anorexia for [address] showed signs of early appendicitis. Patient started on IV antibiotics. General surgery was consulted for further evaluation and recommendations. Patient underwent laparoscopic appendectomy on 07/[address] Combs. No events reported overnight. Patient reports some ongoing abdominal pain. Patient was able to eat breakfast, regular diet without nausea, or vomiting. He was cleared by general surgery for discharge as long as he tolerates breakfast. He denies any fevers, chills, cough, shortness of breath, nausea or vomiting. He is dressed and ready to go home ambulating in his room. - Time Spent with Patient Total time spent providing and/or coordinating discharge services: Less than 30 minutes - Quality: VTE Deep Vein Thrombosis/Pulmonary Embolism Present on Admission: No Exam Vital signs: Vital Signs 07/22/18 11:42 07/22/18 18:30 07/22/18 19:00 Temperature 97.8 F 97.7 F Pulse Rate 62 55 L Respiratory Rate 17 18 Blood Pressure 134/75 133/81 131/80 Pulse Oximetry 97 98 07/22/18 22:15 07/22/18 22:30 07/22/18 22:45 Temperature 96.6 F L Pulse Rate 97 H 86 76 Respiratory Rate 16 18 22 Blood Pressure 141/90 H 160/80 H 139/84 Pulse Oximetry 97 95 93 L 07/22/18 22:55 07/22/18 23:00 07/22/18 23:15 Temperature 97.4 F L 98 F Pulse Rate 98 H 69 Respiratory Rate 20 20 18 Blood Pressure 131/76 Pulse Oximetry 97 92 L 07/23/18 02:00 07/23/18 03:25 07/23/18 08:00 Temperature 97.6 F 97.7 F Pulse Rate 52 L 46 L Respiratory Rate 20 18 18 Blood Pressure 116/68 145/78 H Pulse Oximetry 94 L 97 Intake & Output 07/22/18 07/23/18 07/23/18 18:59 06:59 18:59 Intake Total 1150 / 1150 2220 / 2220 Output Total Balance 1150 / 1150 2210 / 2210 Weight 110.6 kg Intake: IV 1150 / 1150 500 / 500 NS Inj 1,000 ML @ 100 mls/hr IV 1000 / 1000 .CONT .Q10H [facility] Rx#:[id number] Cipro 400 MG/200 ML Inj 400 mg 200 / 200 In 200 ml @ 200 mls/hr IV.SIG Q12H [facility] Rx#:[id number] Levaquin 750 mg Premix Inj 150 150 / 150 ML @ 100 mls/hr IV.SIG ONCE ONE Rx#:[id number] Flagyl 500 MG Inj 100 ML @ 100 300 / 300 mls/hr IV.SIG Q8H [facility] Rx#: [id number] Oral 720 / 720 Anesthesia Amount 1000 / 1000 Output: Estimated Blood Loss Other: # Voids 3 Date of Last Bowel Movement 07/21/18 # Bowel Movements 0 Weight On Admission 110.677 kg Narrative: GENERAL: Well-developed and well-nourished in no distress SKIN: Warm and dry. HEAD: Atraumatic. Normocephalic. EYES: Pupils equal/round. No scleral icterus. No injection or drainage. ENT: No nasal bleeding or discharge. Mucous membranes pink and moist. NECK: Trachea midline. CARDIOVASCULAR: Regular rate and rhythm. RESPIRATORY: No accessory muscle use. Clear to auscultation. Breath sounds equal bilaterally. GASTROINTESTINAL: Abdomen soft, nondistended, positive bowel sounds, mild tenderness. Steri-Strips dry and intact. MUSCULOSKELETAL: Extremities without clubbing, cyanosis, or edema. No obvious deformities. NEUROLOGICAL: Awake and alert. No obvious cranial nerve deficits. Motor grossly within normal limits. Normal speech. PSYCHIATRIC: Appropriate mood and affect; insight and judgment normal. Results Procedures completed during hospitalization: Date of procedure: 07/22/18 Procedure: Laparoscopic appendectomy Anesthesia: CALI Surgeon: Lennox Combs MD Pending studies at discharge: Pending at discharge 07/22/18 07:37 Surgical [PTH] Routine Labs on day of discharge: Labs from last 24 hours 07/23/18 07/23/18 05:49 05:49 WBC 8.1 RBC 5.03 Hgb 15.6 Hct 44.2 MCV 87.9 MCH 31.0 MCHC 35.3 RDW 13.6 Plt Count 225 MPV 9.1 Neut % (Auto) 88.5 H Lymph % (Auto) 8.7 L Grant % (Auto) 2.6 Eos % (Auto) 0.1 Baso % (Auto) 0.1 Neut # (Auto) 7.1 Lymph # (Auto) 0.7 L Grant # (Auto) 0.2 Eos # (Auto) 0.0 Baso # (Auto) 0.0 WBC Differential . Differential Comment Auto diff final Sodium 139 Potassium 4.3 Chloride 108 H Carbon Dioxide 24.2 Anion Gap 7 BUN 11 Creatinine 1.09 Estimated GFR 76 L Random Glucose 131 H Calcium 9.2 D Discharge Plan - Discharge Disposition Patient Disposition: 01 Discharge Home - Discharge Condition Condition: Good - Discharge Order Discharge Orders: Discharge Order (Routine); Ordered 07/23/18 Ordered By: Amadeo Florian - Physicians Team Primary Care Provider: Primary Care Miguel,Shruthi Attending Provider: David Joyce Other Providers: Lennox Combs MD ; Du Tarango MD
== END 2018-07-23 10:13 | disposition home or self-care (01) ==
LOC: NEPC 02:53 → NEDA 07:26 → HPAC 12:00 → N06 23:00
PROVIDERS: ADMIT Hospitalist; ATTEND Hospitalist
PROC: LAPAPPY (ICD-10-PCS; 2018-07-22 20:55)